=== PATIENT | female | born 1955 | race American Indian/Alaskan Native ===

== ENCOUNTER 2017-06-11 05:55 | Inpatient (IN) | payer OTHER ==
--- NOTE | 2017-06-10 10:23 | HP ---
Satellite [facility] - Chief Complaint Chief Complaint: right knee pain - Past Medical History Allergies/Adverse Reactions: Allergies Allergy/AdvReac Type Severity Reaction Status Date / Time No Known Allergies Allergy Verified 03/14/17 11:41 Renal/: Yes: UTI, Other (nephrolithiasis and septiciemia requiring admission) - Current Medications Current Medications: Home Medications Medication Instructions Recorded Amlodipine Besylate 5 mg PO HS 03/14/17 Atorvastatin Ca [Lipitor] 10 mg PO HS 03/14/17 Naproxen Sodium [Aleve] 220 mg PO BID PRN 03/14/17 Satellite Physical Exam - Physical Examination General Appearance: Well Nourished, Well Developed, Alert & Oriented x3 ENT: Clear Lung: Normal air movement Heart: Regular rate & rhythm Extremities: Other (right knee- + swelling, + ttp, decr rom, nvi xrays show severe tricompartmental djd) Neurological: Intact, Alert, Oriented Satellite Impression/Plan - Impression/Plan Impression: right knee djd Operative Procedure: right reginaldo tkr Date to be Performed: 06/11/17
[2017-06-11] MEDS ORDERED: CEFAZOLIN 1 GM/D5W 50 ML IVPB ONE (06:06)
[2017-06-11] MEDS ORDERED: CELECOXIB 200 MG CAPSULE PO ONE (06:06)
[2017-06-11] MEDS ORDERED: GABAPENTIN 300 MG CAPSULE (FP) PO ONE (06:06)
[2017-06-11] MEDS ORDERED: TRANEXAMIC ACID 1000 MG/10 ML VIAL IVPUSH ONE (06:06)
[2017-06-11] MEDS ORDERED: oxyCODONE HCL 10 MG SUSTAINED ACTING TABLET PO ONE (06:06)
[2017-06-11] MEDS ORDERED: oxyCODONE HCL 10 MG SUSTAINED ACTING TABLET ONE (06:09)
[2017-06-11] MEDS ORDERED: GABAPENTIN 300 MG CAPSULE (FP) ONE (06:09)
[2017-06-11] MEDS ORDERED: CELECOXIB 200 MG CAPSULE ONE (06:09)
[2017-06-11] MEDS ORDERED: MIDAZOLAM HCL 2 MG/2 ML SINGLE DOSE VIAL ONE ×2 (06:37→08:16)
[2017-06-11] MEDS ORDERED: SODIUM CHLORIDE 0.9% P/F 10 ML VIAL IJ ONE (06:37)
[2017-06-11] MEDS ORDERED: DEXAMETHASONE SOD PHOSPHATE/PF 10 MG/ML SDV ONE (06:37)
[2017-06-11] MEDS ORDERED: BUPIVACAINE HCL/PF (5 MG/ML) 30 ML VIAL IJ ONE (06:37)
[2017-06-11 06:49] VITALS: BMI 37.8
[2017-06-11] MEDS ORDERED: ceFAZolin SODIUM 1 GM VIAL ONE (07:18)
[2017-06-11] MEDS ORDERED: VANCOMYCIN 1,000 MG VIAL (RESTRICTED TO ID ONLY) ONE (07:18)
[2017-06-11] MEDS ORDERED: ePHEDrine SULFATE 50 MG/1 ML AMPULE ONE (07:47)
[2017-06-11] MEDS ORDERED: SUCCINYLCHOLINE CHLORIDE 200 MG/10 ML VIAL ONE (07:47)
[2017-06-11] MEDS ORDERED: TRANEXAMIC ACID 1000 MG/10 ML VIAL ONE ×2 (07:51→09:26)
[2017-06-11] MEDS ORDERED: PROPOFOL 20 ML ONE (08:27)
[2017-06-11] MEDS ORDERED: ROCURONIUM BROMIDE 50 MG/5 ML VIAL ONE (08:37)
[2017-06-11] MEDS ORDERED: ONDANSETRON 4 MG/2 ML VIAL ONE (09:20)
[2017-06-11] MEDS ORDERED: DEXAMETHASONE SOD PHOSPHATE 4 MG/1 ML VIAL ONE (09:21)
[2017-06-11] MEDS ORDERED: MAG HYDROX/AL HYDROX/SIMETH 30 ML UNIT-DOSE CUP PO PRN (10:27)
[2017-06-11] MEDS ORDERED: MAGNESIUM HYDROX 2400MG/30ML ORAL SUSPENSION 30 ML CUP PO PRN (10:27)
[2017-06-11] MEDS ORDERED: ONDANSETRON 4 MG/2 ML VIAL IVPB PRN (10:27)
[2017-06-11] MEDS ORDERED: LACTATED RINGERS SOLUTION 1,000 ML IV SCH (10:30)
--- NOTE | 2017-06-11 10:30 | OP ---
Operative Note - Note: Operative Date: 06/11/17 (jennifer) Pre-Operative Diagnosis: right knee djd Operation: right reginaldo tkr Post-Operative Diagnosis: Same as Pre-op Surgeon: Yrn Santa [employer] Professional: Baldemar Singleton Anesthesiologist/HOG SCRAPER: Amy Gonzalez Anesthesia: General, Local Specimens Removed: bone fragments Estimated Blood Loss (mls): 100 (tourniquet) Operative Report Dictated: Yes
[2017-06-11] MEDS ORDERED: oxyCODONE HCL 5 MG TABLET PO PRN (11:47)
[2017-06-11] MEDS: ACETAMINOPHEN 325 MG TABLET (FP) PO SCH ×3 (12:00→18:01)
[2017-06-11] MEDS: CEFAZOLIN 2 GM/D5W 50 ML IVPB SCH (15:44)
[2017-06-11] MEDS: oxyCODONE HCL 5 MG TABLET PO PRN (16:35)
--- NOTE | 2017-06-11 17:08 | SPEC ---
DATE OF OPERATION: 06/11/2017 OPERATION: Right total knee replacement with robotic-assisted navigation (MAKOplasty). PREOPERATIVE DIAGNOSIS: Degenerative joint disease, right knee. POSTOPERATIVE DIAGNOSIS: Degenerative joint disease, right knee. SURGEON: Yrn Santa M.D. [facility] NURSE: Pari Lewis ANESTHESIA: Regional and spinal. CLOSURE: A Triathlon cemented knee system with a 2 femur, a 2 tibia, a 9 polyethylene, a 29 patella. A number 1 Vicryl fascia, 0 and 2-0 for subcutaneous, 3-0 Monocryl subcuticular with skin glue for skin, 4-0 undyed Vicryl for pin sites. ESTIMATED BLOOD LOSS: Negligible. TOURNIQUET TIME: Approximately 80 minutes. COMPLICATIONS: None. CONDITION: To recovery room in stable condition. DESCRIPTION OF PROCEDURE: Patient was taken to the operating room on June 11, 2017. Regional and spinal anesthesia were administered by the anesthesiologist. IV antibiotics and TXA were administered prophylactically prior to the case. A well-padded pneumatic tourniquet was placed on the right proximal thigh. The right lower extremity was prepped and draped in the usual sterile fashion. An approximately 12-cm midline incision centered over the patella was incised. Hemostasis was achieved with Bovie cautery. Sharp dissection was carried down to the level of the extensor mechanism the procedure. A medial parapatellar arthrotomy was then performed. The patella was inverted and the knee was flexed up to 90 degrees. Subperiosteal dissection was performed on the anteromedial proximal tibia until the knee was able to be brought forward. This was facilitated by taking the ACL, the PCL, and the medial and lateral menisci. A checkpoint was malleted into the medial femoral condyle and into the anteromedial proximal tibia. Through 2 small stab incisions in the mid femur and two in the mid tibia, 2 bicortical pins were drilled, achieving excellent height. Two of these pins were attached to the navigation arrays. The knee was then registered with the navigation device by rotating the hip to ascertain the center of rotation of the hip with points on both the medial and lateral malleoli and multiple points on both the femur and on the tibia. Excellent registration was confirmed by "popping the bubbles". At this time, the osteophytes on the edges of the proximal tibia both medially and laterally, as well as on the medial lateral femoral condyles underneath the collateral ligaments were debrided. The knee was stressed in extension and in flexion to confirm good gaps. The virtual positions of the components were then optimized in order to have a balanced knee, both in extension and in 90 degrees of flexion. The sizes of the components were also optimized to get good coverage over both the tibia and the femur and to produce equal gaps in extension and flexion with the appropriate amount of external rotation of the femur, the appropriate amount of flexion of the femoral component and the appropriate slope on the tibial component. At this time, the robot was brought into the field and registered. The robot was used to cut the proximal tibia and to make all the cuts on the distal femur. The bone was then removed. A spacer block in extension and flexion was used to confirm equal balancing of the component in both extension and 90 degrees of flexion. The box for the posterior cruciate sacrificing component was then performed and a trial component on the femur and tibia was applied. The femoral component was clipped into place with the appropriate external rotation. This was confirmed by the navigation device, ensuring the appropriate position of the tibial component on the proximal tibia. The patella was calipered for thickness and osteotomized at the appropriate level. A lollipop was used to drill the three lugholes in the patella and then a trial component was applied. The knee was taken through a range of motion and found to have excellent tracking of the patella from full extension to full flexion, with good stability, varus/valgus throughout range of motion. The trial components were then removed. Before removing the tibial tray, the keyhole was made. The knee was then thoroughly irrigated with antibiotic irrigation. The real components were then cemented in, using modern generation cement techniques with antibiotic cement and pressurization. After the cement was hardened, the knee was thoroughly inspected to remove all excess cement. The real polyethylene component was then clipped into place. Again, range of motion, stability and tracking were found to be excellent throughout. The knee was then pulse antibiotic irrigated and dried. Vancomycin powder was placed into the knee. The checkpoints were removed. The medial parapatellar arthrotomy was then closed using number 1 Vicryl interrupted suture. The knee was again taken through range of motion and found to have no undue tension on the repair and good tracking throughout. The subcutaneous was closed with 0 and 2-0 Vicryl and 3-0 Monocryl subcuticular for skin with skin glue. The pins were removed in the femur and the tibia and pulse antibiotic irrigated and closed with 4-0 undyed Vicryl. Sterile Aquacel dressing followed by a Anderson dressing was applied. The tourniquet was then deflated. One more dose of TXA was administered at the end of the case. The patient was awakened from anesthesia and transferred to the recovery room in stable condition. X-rays revealed good position of the components. There were no complications. Estimated blood loss was negligible. Total tourniquet time was approximately 80 minutes. Gordo HIGHTOWER/[id number]
[2017-06-11] MEDS: SENNOSIDES/DOCUSATE COMBO (SENNA PLUS) TABLET (UD) PO SCH (21:34)
[2017-06-11] MEDS: ATORVASTATIN CA 10 MG TABLET (FP) PO SCH (21:34)
[2017-06-11] MEDS: amLODIPine BESYLATE 5 MG TABLET (FP) PO SCH (21:34)
[2017-06-12] MEDS: CEFAZOLIN 2 GM/D5W 50 ML IVPB SCH (00:27)
[2017-06-12] MEDS: ACETAMINOPHEN 325 MG TABLET (FP) PO SCH ×4 (00:29→17:15)
[2017-06-12 08:06] LABS: MCH 27.5 pg (25.7-33.7); MCHC 33.4 g/dl (32.0-36.0); MEAN CELL VOLUME 82.4 fl (80-96); MEAN PLT VOLUME 9.4 fl (7.5-11.1); PLATELET COUNT 233 K/MM3 (134-434); RDW 13.3 % (11.6-15.6); WHITE BLOOD COUNT 14.4 K/mm3 (4.0-10.8)
--- NOTE | 2017-06-12 08:18 | PN ---
Progress Note (short form) - Note Progress Note: Ortho Pt seen and examined s/p right reginaldo tkr pod #1 Selected Entries 06/12/17 06:00 Temperature 98.1 F Pulse Rate 85 Respiratory 20 Rate Blood Pressure 119/48 Laboratory Tests 06/12/17 07:00 WBC 14.4 H Hgb 12.7 Hct 38.1 Plt Count 233 dressing c/d/i, calf soft, nt rom 0-50, nvi a/p PT dvt ppx pain control d/c home tomorrow if stable
[2017-06-12] MEDS: oxyCODONE HCL 5 MG TABLET PO PRN ×3 (08:33→21:32)
[2017-06-12] MEDS: ASPIRIN 325 MG TABLET PO SCH (08:33)
--- NOTE | 2017-06-12 09:31 | PN ---
Progress Note (short form) - Note Progress Note: Anesthesiology Post-op/Pain Service POD#1 s/p Right TKR under regional/neuraxial anesthesia. Pt. feels well. She has some pain with movement but states that meds help. She is participating in PT. No residual paresthesia. VSS.
[2017-06-12] MEDS: MULTIVITAMINS (DAILY MVI) TABLET (FP) PO SCH (09:53)
[2017-06-12] MEDS: PANTOPRAZOLE 40 MG TABLET (FP) PO SCH (09:53)
[2017-06-12] MEDS: SENNOSIDES/DOCUSATE COMBO (SENNA PLUS) TABLET (UD) PO SCH ×2 (09:53→21:31)
[2017-06-12] MEDS: amLODIPine BESYLATE 5 MG TABLET (FP) PO SCH (21:31)
[2017-06-12] MEDS: ATORVASTATIN CA 10 MG TABLET (FP) PO SCH (21:31)
[2017-06-13] MEDS: ACETAMINOPHEN 325 MG TABLET (FP) PO SCH ×3 (00:04→12:26)
[2017-06-13] MEDS: oxyCODONE HCL 5 MG TABLET PO PRN (06:10)
[2017-06-13 06:15] VITALS: BP 128/49; PULSE 80; TEMP 97.7
--- NOTE | 2017-06-13 08:09 | PN ---
Progress Note (short form) - Note Progress Note: Ortho Pt seen and examined s/p right reginaldo tkr pod #2 Selected Entries 06/13/17 06:00 Temperature 97.7 F Pulse Rate 80 Respiratory 18 Rate Blood Pressure 128/49 Laboratory Tests 06/12/17 07:00 WBC 14.4 H Hgb 12.7 Hct 38.1 Plt Count 233 dressing c/d/i, calf soft, nt rom 0-50, nvi a/p PT dvt ppx pain control d/c home today f/u in 1 week
--- NOTE | 2017-06-13 08:10 | DS ---
Physical Examination Vital Signs: Vital Signs Temperature 97.7 F 06/13/17 06:00 Pulse Rate 80 06/13/17 06:00 Respiratory Rate 18 06/13/17 06:00 Blood Pressure 128/49 06/13/17 06:00 O2 Sat by Pulse Oximetry (%) 95 06/13/17 06:00 Discharge Summary Reason For Visit: OSTEOARTHRITIS Procedures: Principal: s/p right reginaldo tkr Hospital Course: admitted for elective right reginaldo tkr, uneventful post-op, stable for d/c Condition: Good - Instructions Diet, Activity, Other Instructions: Post-op Instructions-Total Knee Replacement Call the office for a follow-up appointment in 1 week - [phone] Aspirin 325mg daily for 6 weeks. Pain medication was sent into your pharmacy. Apply Graduated Compression Stockings (TEDs) to both lower extremities- remove daily for hygiene ONLY Apply Sequential Compression Device (SCDs) to both Lower extremities remove for PT and hygiene ONLY Apply cold packs to affected area for 15 minutes every 2 hours. Physical Therapist will come to your home for the first 5 days. You will be set up with outpatient PT at your first post-operative visit. Patient may ambulate as tolerated-encourage self care (at least every 2-3 hours while awake) with walker or cane Maintain Aquacel (waterproof) dressing to operative wound (will be removed by surgeon at first office visit) Shower with Aquacel dressing in place-if Aquacel integrity compromised, remove and apply dry sterile dressing and notify Orthopedist. DO NOT SHOWER unless Orthopedists approves without Aquacel dressing CONTACT THE OFFICE FOR ANY CHANGE IN YOUR CONDITION (for example-fever greater than 102 degrees,excessive bleeding from operative site, purulent drainage, severe swelling or pain) GO TO THE EMERGENCY ROOM IF THERE IS A MEDICAL EMERGENCY Knee Precautions: * Keep a rolled towel under affected heel while in bed or chair (to keep knee in extension) * Keep affected leg elevated except during mealtimes * DO NOT PLACE PILLOW UNDER AFFECTED KNEE * If you have any questions, please do not hesitate to call the office - . Referrals: Yrn Santa MD [Staff Physician] - Disposition: VNS/HOME HEALTH CARE - Home Medications Comprehensive Discharge Medication List: Ambulatory Orders Amlodipine Besylate 5 mg PO HS 03/14/17 Atorvastatin Ca [Lipitor] 10 mg PO HS 03/14/17 Naproxen Sodium [Aleve] 220 mg PO BID PRN 03/14/17 Aspirin [ASA -] 325 mg PO DAILY@0800 tablet 06/11/17 Oxycodone HCl/Acetaminophen [Percocet 5-325 mg Tablet -] 1 - 2 tab PO Q6H #50 tab MDD 8 06/11/17
[2017-06-13 08:41] LABS: MCH 27.9 pg (25.7-33.7); MCHC 33.8 g/dl (32.0-36.0); MEAN CELL VOLUME 82.5 fl (80-96); MEAN PLT VOLUME 9.4 fl (7.5-11.1); PLATELET COUNT 212 K/MM3 (134-434); RDW 13.6 % (11.6-15.6); WHITE BLOOD COUNT 9.4 K/mm3 (4.0-10.8)
[2017-06-13] MEDS: SENNOSIDES/DOCUSATE COMBO (SENNA PLUS) TABLET (UD) PO SCH (09:50)
[2017-06-13] MEDS: ASPIRIN 325 MG TABLET PO SCH (09:50)
[2017-06-13] MEDS: PANTOPRAZOLE 40 MG TABLET (FP) PO SCH (09:51)
[2017-06-13] MEDS: MULTIVITAMINS (DAILY MVI) TABLET (FP) PO SCH (09:51)
--- NOTE | 2017-06-13 16:02 | PATH ---
Surgical Pathology Report Patient Name: DILAN RIVAS Med. Rec. #: [id number] /Age/Gender: 1955 (Age: 62) / F Account: [id number] Location: [facility] MED-SURG Taken: 06/11/2017 Received: 06/11/2017 Reported: 06/13/2017 Physicians: Yrn Santa M.D. Specimen(s) Received BONE RIGHT KNEE Clinical History Right knee osteoarthritis Final Diagnosis BONE, RIGHT KNEE, TOTAL KNEE REPLACEMENT: DEGENERATIVE JOINT DISEASE. Electronically Signed Briana Tejeda M.D. Gross Description Received in formalin labeled "bone right knee," is an 11.5 x 7.5 x 1.5 cm aggregate of multiple irregular portions of bone. The tibial plateau measures 6.4 x 4.7 x 1.4 cm. There is a 2.3 cm greatest dimension area of eburnation present. The remaining articular surfaces are childs-yellow and diffusely granular. The underlying trabecular bone is yellow and hard. Weir Fisher sections are submitted in one cassette, following decalcification. [facility]
== END 2017-06-13 14:00 | disposition home health service (06) | DRG 470 ==
LOC: FM/S 05:55
PROVIDERS: ADMIT Orthopaedic Surgery; ATTEND Orthopaedic Surgery
PROC: 8E0Y0CZ Robotic Assisted Procedure of Lower Extremity, Open Approach (ICD-10-PCS; 2017-06-11)
PROC: 0SRC0J9 Replacement of Right Knee Joint with Synthetic Substitute, Cemented, Open Approach (ICD-10-PCS; principal; 2017-06-11 08:57)
DX: M17.11 Unilateral primary osteoarthritis, right knee (principal); I10 Essential (primary) hypertension; E66.9 Obesity, unspecified; Z68.37 Body mass index [BMI] 37.0-37.9, adult; Z87.440 Personal history of urinary (tract) infections
CPT/HCPCS: 36415; 73560-TC-RT; 85027; 88304-TC; 88311-TC; 94010; 94760; 97010-GP; 97116-GP; 97161-GP

== ENCOUNTER 2018-03-16 22:04 | Emergency (ER) | payer OTHER ==
[2018-03-16 22:13] VITALS: BP 133/71; PULSE 82; TEMP 98.1; BMI 37.8
[2018-03-16] MEDS ORDERED: FLUORESCEIN NA 1 EA STRIP ONE (22:20)
[2018-03-16] MEDS ORDERED: TETRACAINE 0.5% OPHTH SOLN 2 ML BOTTLE ONE (22:20)
--- NOTE | 2018-03-16 22:24 | PDOC ---
History of Present Illness - General Chief Complaint: Eye Problem Stated Complaint: ALLERGY TO DUST Time Seen by Provider: 03/16/18 22:13 History Source: Patient Exam Limitations: No Limitations - History of Present Illness Initial Comments: 03/16/18 22:34 This is a 63-year-old female who comes in complaining of ALLERGY and itching to her eyes bilaterally. Patient rubber her one eye so much that it is now swollen and all read. Patient denies any pain or purulent discharge from her eyes. Patient is taking some [id number] NSAID drops for the eye but otherwise no other medication. PAST MEDICAL HISTORY: no significant history PAST SURGICAL HISTORY: no significant history FAMILY HISTORY: no pertinant history SOCIAL HISTORY: Pt lives with family and is employed. MEDICATIONS: reviewed ALLERGIES: As per nursing notes Review of Systems General: No fevers or chills, no weakness, no weight loss HEENT: No change in vision. No sore throat,. No ear pain, water itching eyes bilateral right greater than left CardioVascular: No chest pain or shortness of breath Respiratory:No cough, or wheezing. Gastrointestinal: no nausea, vomitting, diarrhea or constipation, No rectal bleeding Genitourinary: No dysuria, hematuria, or frequency Musculoskeletal: No joint or muscle pain or swelling Neurologic: No headache, vertigo, dizziness or loss of consciousness Psychiatric: nor depression Skin: No rashes or easy bruising Endocrine: no increased thirst or abnormal weight change Allergic: no skin or latex allergy All other systems reviewed and normal GENERAL: The patient is awake, alert, and fully oriented, in no acute distress. HEAD: Normal with no signs of trauma. EYES: Pupils equal, round and reactive to light, extraocular movements intact, sclera anicteric, right eye conjunctiva is moderately injected there is no purulent discharge there is a clear watery discharge from the eyes bilateral left eye conjunctiva is slightly injected but less than right. On floor sitting staining there is no increased uptake/abrasions EXTREMITIES: Normal range of motion, no edema. NEUROLOGICAL: Normal speech, normal gait. grossly intact PSYCH: Normal mood, normal affect. SKIN: Warm, Dry, normal turgor, no rashes or lesions noted. Assessment and plan: This is a 63-year-old female with ALLERGIC conjunctivitis. Patient had prescriptions in to her pharmacy for drops and was discharged home with her son patient will get the prescription filled and take the drops 03/16/18 22:36 Past History - Past Medical History Allergies/Adverse Reactions: Allergies Allergy/AdvReac Type Severity Reaction Status Date / Time No Known Allergies Allergy Verified 03/16/18 22:06 Home Medications: Ambulatory Orders Amlodipine Besylate 5 mg PO HS 03/14/17 Atorvastatin Ca [Lipitor] 10 mg PO HS 03/14/17 Olopatadine HCl 0.1% Ophth Samantha [Patanol (Nf)] 1 drop OU BID #5 ml 03/16/18 Anemia: Yes (VERY LONG TIME AGO) Asthma: No Cancer: No Cardiac Disorders: No CVA: No COPD: No CHF: No Dementia: No Diabetes: No GI Disorders: No Disorders: (HX KIDNEY STONES, LITHOTRIPSY 2014) HTN: Yes Hypercholesterolemia: Yes Liver Disease: No Seizures: No Thyroid Disease: No - Surgical History Abdominal Surgery: No Appendectomy: No Cardiac Surgery: No Cholecystectomy: No Lung Surgery: No Neurologic Surgery: No Orthopedic Surgery: No - Immunization History Immunization Up to Date: No - Suicide/Smoking/Psychosocial Hx Smoking History: Never smoked Have you smoked in the past 12 months: No Information on smoking cessation initiated: No Hx Alcohol Use: No Drug/Substance Use Hx: No Substance Use Type: None Hx Substance Use Treatment: No *Physical Exam - Vital Signs Last Vital Signs Temp Pulse Resp BP Pulse Ox 98.1 F 82 16 133/71 99 03/16/18 22:09 03/16/18 22:09 03/16/18 22:09 03/16/18 22:09 03/16/18 22:09 *DC/Admit/Observation/Transfer Diagnosis at time of Disposition: Allergic conjunctivitis - Discharge Dispostion Disposition: HOME Condition at time of disposition: Stable Decision to Admit order: No - Prescriptions Prescriptions: Olopatadine HCl 0.1% Ophth Samantha [Patanol (Nf)] 1 drop OU BID #5 ml - Referrals Referrals: Clark Lombardi MD [Primary Care Provider] - - Patient Instructions Additional Instructions: Put 1 drop of ophthalmic ointment the ophthalmic solution in each eye twice a day for itching and redness. Follow-up with your typewriter tester if not improved in 2-3 days. Return to the emergency department immediately with ANY new, persistent or worsening symptoms. Continue any medications as previously prescribed by your physician. . Please make sure your doctor reviews the results of your emergency evaluation. Thank you for coming to the Emergency Department today for your care. It was a pleasure to see you today. Please note that your evaluation is INCOMPLETE until you follow-up with your doctor. - Post Discharge Activity
== END 2018-03-16 22:47 | disposition home or self-care (01) ==
LOC: FER 22:04
DX: H10.10 Acute atopic conjunctivitis, unspecified eye (principal); I10 Essential (primary) hypertension; E78.00 Pure hypercholesterolemia, unspecified
CPT/HCPCS: 99281-25

== ENCOUNTER 2020-04-11 06:02 | Inpatient (IN) | payer OTHER ==
--- NOTE | 2019-11-23 09:35 | HP ---
History & Physical Update - History History: No Change - Physical Physical: No Change - Assessment Assessment: No Change - Plan Plan: No Change (No canela in HP)
--- NOTE | 2019-11-23 09:40 | OP ---
Operative Note - Note: Operative Date: 11/23/19 Post-Operative Diagnosis: Same as Pre-op Anesthesia: General Operative Report Dictated: Yes
[2020-04-08 15:32] VITALS: BMI 38.0
--- NOTE | 2020-04-11 04:01 | HP ---
Satellite [facility] - Chief Complaint Chief Complaint: Pelvic Prolapse History of Present Illness: 65 yo with pelvic prolapse for hysterectomy. Hx of right knee replacement History Source: Patient Limitations to Obtaining History: No Limitations - Past Medical History Allergies/Adverse Reactions: Allergies Allergy/AdvReac Type Severity Reaction Status Date / Time No Known Allergies Allergy Verified 04/11/20 07:00 Cardiovascular: Yes: HTN, Hyperlipdemia, Other (diabetes) Renal/: Yes: UTI, Other (nephrolithiasis and septiciemia requiring admission) ...: No Additional Medical History: HTN. DIabetes. Hyperlipdemia - Current Medications Current Medications: Home Medications Medication Instructions Recorded Atorvastatin Ca [Lipitor] 20 mg PO HS 03/14/17 Amlodipine Besylate/Valsartan 1 each PO HS 04/08/20 [Amlodipine-Valsartan 5-160 mg] Aspirin [Ecotrin] 81 mg PO DAILY 04/08/20 Metformin HCl [Glucophage] 1,000 mg PO DAILY 04/08/20 Satellite Physical Exam - Physical Examination General Appearance: Well Nourished, Well Developed, Alert & Oriented x3, Obese Lung: Clear to auscultation Breasts: Soft, Non-Tender Abdomen: Soft Extremities: No edema Pelvic Exam: Within normal limits External Genitalia, Within normal limits Vagina, Within normal limits Cervix, Other Uterus (enlarged 8 cm) Neurological: Intact, Alert, Oriented Satellite Impression/Plan - Impression/Plan Impression: Pelvic prolpase. diabetes. Hypertension. hyperlipemia Operative Procedure: Robotic laparoscopic hysterectomy. bilateral salpingectomy Date to be Performed: 04/11/20
[~2020-04-11 06:02] MED LIST: ACETAMINOPHEN 325 MG TABLET (FP) PO PRN; CEFAZOLIN 2 GM in DEXTROSE 5%-WATER - 100 ML IVPB ONE; IBUPROFEN 400 MG TABLET (FP) PO PRN; PHENAZOPYRIDINE HCL 100 MG TABLET (FP) PO ONE; oxyCODONE HCL 5 MG TABLET PO PRN
[2020-04-11] MEDS ORDERED: BUPIVACAINE LIPOSOME/PF (EXPAREL) 266 MG/20 ML VIAL ONE (07:18)
[2020-04-11] MEDS ORDERED: BUPIVACAINE HCL/PF 0.25% (2.5MG/ML) 10 ML VIAL ONE (07:18)
[2020-04-11] MEDS ORDERED: SUCCINYLCHOLINE CHLORIDE 200 MG/10 ML SYRINGE ONE (07:28)
[2020-04-11] MEDS ORDERED: PROPOFOL 20 ML ONE ×2 (07:28)
[2020-04-11] MEDS ORDERED: MIDAZOLAM HCL 2 MG/2 ML SINGLE DOSE VIAL ONE (07:28)
[2020-04-11] MEDS ORDERED: fentaNYL CITRATE 250 MCG/5 ML VIAL ONE (07:28)
[2020-04-11] MEDS ORDERED: ROCURONIUM BROMIDE 50 MG/5 ML SYRINGE ONE ×2 (07:28→09:00)
[2020-04-11] MEDS ORDERED: ceFAZolin SODIUM 1 GM VIAL IVPB ONE (08:40)
[2020-04-11] MEDS ORDERED: LACTATED RINGERS SOLUTION 1,000 ML IV SCH ×2 (09:15→13:15)
[2020-04-11] MEDS ORDERED: IBUPROFEN 800 MG/8 ML IJ IVPB PRN (11:58)
[2020-04-11] MEDS ORDERED: oxyCODONE HCL 5 MG TABLET PO PRN ×2 (11:58)
[2020-04-11] MEDS ORDERED: SIMETHICONE 80 MG TAB.CHEW (FP) PO PRN (11:58)
[2020-04-11] MEDS ORDERED: ONDANSETRON 4 MG/2 ML VIAL IVPUSH PRN (11:58)
[2020-04-11] MEDS ORDERED: DOCUSATE SODIUM 100 MG CAPSULE (FP) PO PRN (11:58)
[2020-04-11] MEDS ORDERED: BISACODYL 5 MG TABLET.DR (FP) PO PRN (11:58)
--- NOTE | 2020-04-11 12:09 | OP ---
Operative Note - Note: Operative Date: 04/11/20 Pre-Operative Diagnosis: Endometrial hyperplasia Operation: Robotic total hysterectomy and bilateral salpingectomy with lysis of adhesions Post-Operative Diagnosis: Same as Pre-op Surgeon: Esperanza Hudson Rehabilitation Assistant: Wesley Tabares Anesthesiologist/CNC MACHINE PROGRAMMER: Katherine Ledbetter MD Anesthesia: General Estimated Blood Loss (mls): 50 Fluid Volume Replaced (mls): 1,000 Operative Report Dictated: Yes
--- NOTE | 2020-04-11 12:11 | SURG ---
Surgery Coding Analyst Note Coding Analyst: Wesley Tabares PA-C Date of Service: 04/11/20 Diagnosis: endometrial hyperplasia Procedure: Robotic total hysterectomy, bilateral salpingectomy, and Lysis of adhesions I was present for the entirety of the operative procedure. For further detail, please refer to operative report.
[2020-04-11] MEDS ORDERED: NEOSTIGMINE METHYLSULFATE 0.5 MG/1 ML - 10 ML MDV ONE (12:31)
[2020-04-11] MEDS ORDERED: GLYCOPYRROLATE 0.2 MG/1 ML VIAL ONE (12:32)
[2020-04-11] MEDS ORDERED: IBUPROFEN 800 MG/8 ML IJ IVPB ONE ×2 (13:16→13:25)
[2020-04-11] MEDS: CEFAZOLIN 1 GM/D5W 1 GM/50 ML BAG IVPB SCH (17:52)
[2020-04-11 21:14] LABS: HEMATOCRIT 35.9 % (32.4-45.2); HEMOGLOBIN 11.4 GM/dL (10.7-15.3); MCH 26.5 pg (25.7-33.7); MCHC 31.9 g/dl (32.0-36.0); MEAN CELL VOLUME 82.9 fl (80-96); MEAN PLT VOLUME 8.7 fl (7.5-11.1); PLATELET COUNT 224 K/MM3 (134-434); RBC 4.32 M/mm3 (3.60-5.2); RDW 14.7 % (11.6-15.6); WHITE BLOOD COUNT 10.9 K/mm3 (4.0-10.0)
[2020-04-11 21:48] LABS: BLOOD UREA NITROGEN 11.9 mg/dL (7-18); CALCIUM 8.1 mg/dL (8.5-10.1); CREATININE 0.7 mg/dL (0.55-1.3); POTASSIUM 4.1 mmol/L (3.5-5.1)
[2020-04-11] MEDS ORDERED: PATIENT'S OWN MEDICATION (NON-FORMULARY) (Amlodipine Besylate/Valsartan [Amlodipine-Valsar PO SCH (22:00)
[2020-04-11] MEDS: ATORVASTATIN CA 20 MG TABLET (FP) PO SCH (23:00)
[2020-04-11] MEDS: amLODIPine BESYLATE 5 MG TABLET (FP) PO SCH (23:00)
[2020-04-11] MEDS: BENZOCAINE/MENTH/CETYLPYRD CL 1 EACH LOZENGE MM PRN (23:00)
[2020-04-11] MEDS: VALSARTAN 160 MG TABLET (UD) PO SCH (23:00)
[2020-04-12] MEDS: CEFAZOLIN 1 GM/D5W 1 GM/50 ML BAG IVPB SCH ×2 (01:56→09:43)
[2020-04-12] MEDS: BENZOCAINE/MENTH/CETYLPYRD CL 1 EACH LOZENGE MM PRN ×3 (06:15→16:10)
[2020-04-12] MEDS: metFORMIN HCL 500 MG TABLET (FP) PO SCH (06:18)
--- NOTE | 2020-04-12 08:15 | OP ---
DATE OF OPERATION: 04/11/2020 PREOPERATIVE DIAGNOSES: Pelvic prolapse as well as leiomyomatous uterus. OPERATION: Laparoscopic robotic total hysterectomy and bilateral salpingectomy as well as enterolysis. SURGEON: Esperanza Hudson MD ASSISTANTS: ; JOCELYN Florez- ANESTHESIA: General. ESTIMATED BLOOD LOSS: 50 mL. PROCEDURE: Patient was taken to the operating room, placed in the dorsal lithotomy position, prepped and draped in the usual sterile fashion. Timeout was performed in accordance with hospital regulation. Speculum was placed in the vagina. Anterior lip of the cervix grasped with single-tooth tenaculum. The cervix was then dilated to accommodate the uterine manipulator. Rashid catheter was then inserted into the bladder. Speculum was intact and was removed after manipulator was secured in place. Attention was then drawn to the umbilicus where an 8-mm umbilical incision was made. Veress needle was inserted into the cavity. Approximately 3-4 L of CO2 was infiltrated in the cavity. Trocar was inserted and laparoscope and camera attached. Two trocars were placed on the left, 1 parallel to the umbilical incision about 10 cm apart and 1 in the upper abdomen on the left; 8-mm incisions were made and 5-mm incisions were made and trocars were inserted under direct visualization. Same procedure was repeated on the right side. Two trocars were placed parallel to the umbilical; 8-mm incisions were made with the scalpel and trocars were inserted under direct visualization. Visualization revealed severe pelvic and abdominal bowel disease. Omentum was seen to be attached in various locations. Trocars were then inserted. The vessel sleeve was inserted on the left and tenaculum and Endoshears inserted on the right. The positions were then confirmed and all incisions were burped up as well as da Tabby robot had been side docked to the patient's side arm and trocars were then inserted on to da Tabby robot and then instruments were then placed. Once instruments were secured in location attention was then drawn to the console where control of the console was done. A number of enterolyses was done and round ligament was identified as well as uterine ovarian ligaments identified. Coagulation and cutting of the ligaments were done. Uterine artery was identified all along the left side down to the level of the cervix. The sacrouterine reflexion was then entered and bladder was bluntly dissected out of the operative field. Same procedure was repeated on the right side. Uterine ovarian ligament was identified. Uterine artery was identified and clamped and cut down to the level of the cervix. Endoshears was then used to enter the vagina. Circumferentially the vagina was removed from the cervix. The uterus and cervix were then removed vaginally and 2-0 V-Loc suture was then introduced into the abdomen. The vagina was then closed in a continuous stitch. Hemostasis was achieved. Needle was then removed. Tubes were bilaterally grasped and coagulated and cut and removed from patient's abdomen. Hemostasis was achieved and estimated blood loss was 50 mL. All instruments were then removed. Patient had tolerated procedure well. Incisions were then closed using 3-0 Vicryl in a subcuticular fashion. Wounds washed and dressed. Estimated blood loss 50 mL. Approximately 200 mL of urine was seen coming out of the Rashid and the ureters were identified bilaterally. Gordo [id number]
[2020-04-12 09:07] LABS: HEMATOCRIT 35.6 % (32.4-45.2); HEMOGLOBIN 11.5 GM/dL (10.7-15.3); MCH 26.9 pg (25.7-33.7); MCHC 32.3 g/dl (32.0-36.0); MEAN CELL VOLUME 83.2 fl (80-96); MEAN PLT VOLUME 8.7 fl (7.5-11.1); PLATELET COUNT 233 K/MM3 (134-434); RBC 4.28 M/mm3 (3.60-5.2); WHITE BLOOD COUNT 8.7 K/mm3 (4.0-10.0)
[2020-04-12 09:33] LABS: BLOOD UREA NITROGEN 7.9 mg/dL (7-18); CALCIUM 8.3 mg/dL (8.5-10.1); CREATININE 0.7 mg/dL (0.55-1.3); POTASSIUM 3.8 mmol/L (3.5-5.1)
--- NOTE | 2020-04-12 09:37 | CONSULT ---
Consult Consult Specialty:: intrenal med Referred by:: Dr Hudson Reason for Consultation:: S/P Laproscopic hystrectomy and bilateral salpingectomy - History of Present Illness Chief Complaint: Sore throat History of Present Illness: Known to me for many years,diagnosed to have bronchial asthma and diabetes Hysterectomy done for prolapse uterus - Past Medical History Cardio/Vascular: Yes: HTN, Hyperlipdemia, Other (diabetes) Pulmonary: Yes: Asthma Renal/: Yes: UTI, Other (nephrolithiasis and septiciemia requiring admission) ...: No ENT: Yes: Other (throat clear) Endocrine: Yes: Diabetes Mellitus Additional Medical History: HTN. DIabetes. Hyperlipdemia - Past Surgical History Past Surgical History: Yes: None - Alcohol/Substance Use Hx Alcohol Use: No - Smoking History Smoking history: Never smoked Have you smoked in the past 12 months: No - Social History Usual Living Arrangement: Other (spouse recently ) ADL: Independent Home Medications - Allergies Allergies/Adverse Reactions: Allergies Allergy/AdvReac Type Severity Reaction Status Date / Time No Known Allergies Allergy Verified 04/11/20 07:00 - Home Medications Home Medications: Ambulatory Orders Atorvastatin Ca [Lipitor] 20 mg PO HS 03/14/17 Amlodipine Besylate/Valsartan [Amlodipine-Valsartan 5-160 mg] 1 each PO HS 0 04/08/20 Aspirin [Ecotrin] 81 mg PO DAILY 04/08/20 Metformin HCl [Glucophage] 1,000 mg PO DAILY 04/08/20 Physical Exam Vital Signs: Vital Signs Temperature 97.8 F 04/12/20 09:00 Pulse Rate 66 04/12/20 09:00 Respiratory Rate 18 04/12/20 09:00 Blood Pressure 107/62 04/12/20 09:00 O2 Sat by Pulse Oximetry (%) 98 04/11/20 22:00 Labs: CBC, BMP 04/12/20 08:40 Assessment/Plan Sore throat may be due to ETT insertion for anesthesia Advised present care,can be discharged home when ready Follow up in the office in 2 weeks
[2020-04-12] MEDS: ENOXAPARIN NA (PORCINE) 40 MG/0.4 ML DISP.SYRIN SQ SCH (09:43)
[2020-04-12] MEDS: ASPIRIN COATED 81 MG TABLET.EC PO SCH (09:44)
[2020-04-12] MEDS: ACETAMINOPHEN 325 MG TABLET (FP) PO PRN (09:51)
--- NOTE | 2020-04-12 11:38 | PN ---
Progress Note (short form) - Note Progress Note: 65yo F s/p Robotic hysterectomy POD 1. Pt seen and examined at bedside. Pt complaining of moderate abd pain. Pt just had snider taken out so has not urinated yet. Pt denies fever, chills, n/v, excessive vaginal bleeding. Last Vital Signs Temp Pulse Resp BP Pulse Ox 97.8 F 66 18 107/62 98 04/12/20 09:00 04/12/20 09:00 04/12/20 09:00 04/12/20 09:00 04/12/20 09:00 CBC, BMP 04/12/20 08:40 04/12/20 08:40 PE: Gen: A&O X3 Resp: breathing comfortably Abd: mild diffuse tenderness, dressings clean no erythema Legs no edema Problem List - Problems (1) S/P hysterectomy Assessment/Plan: Plan -pt appears to be well, will see if she tolerates diet, urinates, and ambulates. If pt is doing well, will consider discharge late afternoon, otherwise may leave tomorrow morning. -oob/ambulate -regular diet -pain control -dvt ppx Pt discussed with Dr. Hudson who agrees with plan Code(s): Z90.710 - ACQUIRED ABSENCE OF BOTH CERVIX AND UTERUS
[2020-04-12] MEDS ORDERED: KETOROLAC TROMETHAMINE 30 MG/1 ML VIAL IVPUSH ONE (15:33)
--- NOTE | 2020-04-12 15:53 | PN ---
Progress Note (short form) - Note Progress Note: 65F s/p Robot assisted hysterectomy under GETA/TAP block. Pt. doing well this afternoon. VSS. Oxy/vent well. Pt. out of bed with assistance this afternoon. No apparent anesthesia related complications.
[2020-04-12] MEDS ORDERED: BISACODYL 10 MG SUPP.RECT PR PRN (21:56)
[2020-04-12] MEDS ORDERED: ZOLPIDEM TARTRATE 5 MG TABLET PO ONE ×2 (21:56→22:00)
[2020-04-12] MEDS: ATORVASTATIN CA 20 MG TABLET (FP) PO SCH (22:23)
[2020-04-12] MEDS: VALSARTAN 160 MG TABLET (UD) PO SCH (22:26)
[2020-04-12] MEDS: amLODIPine BESYLATE 5 MG TABLET (FP) PO SCH (22:26)
[2020-04-13] MEDS: metFORMIN HCL 500 MG TABLET (FP) PO SCH (06:18)
[2020-04-13] MEDS: ACETAMINOPHEN 325 MG TABLET (FP) PO PRN (10:04)
[2020-04-13] MEDS: ENOXAPARIN NA (PORCINE) 40 MG/0.4 ML DISP.SYRIN SQ SCH (10:05)
[2020-04-13] MEDS: BENZOCAINE/MENTH/CETYLPYRD CL 1 EACH LOZENGE MM PRN (10:07)
[2020-04-13] MEDS: ASPIRIN COATED 81 MG TABLET.EC PO SCH (10:50)
[2020-04-13 11:50] VITALS: BP 117/70; PULSE 100; TEMP 98.4
--- NOTE | 2020-04-13 12:51 | PN ---
Progress Note (short form) - Note Progress Note: 65yo F s/p Robotic hysterectomy POD 2. Pt seen and examined at bedside on AM rounds with no complaints. She states her pain is controlled and she has been OOB ambulating and moved her bowels this morning. Pt denies fever, chills, CP, SOB, n/v, excessive vaginal bleeding. Vital Signs Temp 98.4 F 04/13/20 09:00 Pulse 100 H 04/13/20 09:00 Resp 20 04/13/20 09:00 BP 117/70 04/13/20 09:00 Pulse Ox 98 04/12/20 09:00 Intake & Output 04/12/20 04/13/20 04/13/20 23:59 11:59 23:59 Output Total 800 Balance -800 Output: Urine 800 Void 800 Other: Voiding Method Toilet Toilet CBC, BMP 04/12/20 08:40 04/12/20 08:40 PE: Gen: A&O X3 Resp: breathing comfortably Abd: Obese, ND with mild diffuse tenderness throughout, dressings clean no erythema or active d/c. Legs no edema, compartments soft, supple and NT with +2 DP pulses. Problem List - Problems (1) History of robot-assisted laparoscopic hysterectomy Assessment/Plan: Patient doing well. Plan -oob/ambulate -regular diet -pain control -dvt ppx -d/c home today Pt discussed with Dr. Hudson who agrees with plan Code(s): Z90.710 - ACQUIRED ABSENCE OF BOTH CERVIX AND UTERUS
--- NOTE | 2020-04-18 17:03 | PATH ---
Surgical Pathology Report Patient Name: DILAN RIVAS [facility]. Rec. #: [id number] /Age/Gender: 1955 (Age: 65) / F Account: [id number] Location: [facility] OBS/SPA ASSOCIATE Taken: 04/11/2020 Received: 04/11/2020 Reported: 04/18/2020 Physicians: Esperanza Hudson M.D. Specimen(s) Received A: UTERUS AND CERVIX B: LEFT FALLOPIAN TUBE C: RIGHT FALLOPIAN TUBE Clinical History Endometrial hyperplasia Final Diagnosis A. UTERUS AND CERVIX, HYSTERECTOMY: LEIOMYOMATA. ENDOMETRIAL POLYP. FOCAL ADENOMYOSIS. SIMPLE ENDOMETRIAL HYPERPLASIA WITHOUT ATYPIA. 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 B. LEFT FALLOPIAN TUBE, SALPINGECTOMY: PORTION OF FALLOPIAN TUBE WITH PARATUBAL CYST. C. RIGHT FALLOPIAN TUBE, SALPINGECTOMY: PORTION OF FALLOPIAN TUBE WITH PARATUBAL CYSTS. Comment: Operative report has been reviewed. This case was discussed with Dr. Hudson on 04/18/2020. Electronically Signed Jamila Sánchez M.D. Gross Description A. Received in formalin labeled "uterus and cervix," is a 99 g uterus with an attached cervix and no attached adnexa. The specimen measures 9.8 cm from superior to inferior, 5 cm from left to right and 3.4 cm from anterior to posterior. The serosa is childs-guerrero with focal defects. The attached cervix measures 3.5 cm in length and averages 2.7 cm in diameter. The ectocervix is chilsd, smooth and glistening. The endocervix is unremarkable. The endometrial cavity measures 4.5 cm in length and 2.3 cm from cornu to cornu. There is a 3.2 x 0.7 x 0.2 cm childs-red polyp attached to the lower anterior endometrium. The remaining endometrium is childs-red and focally measures up to 0.3 cm in thickness. There are multiple intramural nodules present, measuring up to 1.7 cm in greatest dimension. The remaining myometrium is childs guerrero and averages 1.7 cm in thickness. Boat Rigger sections are submitted in 18 cassettes as follows: 1-anterior cervix; 2-posterior cervix; [id number] and sequentially submitted anterior endometrium from superior to inferior with the polyp in cassette 9; [id number] and sequentially submitted posterior endometrium from superior to inferior; 18-intramural nodules. B. Received in formalin labeled "left fallopian tube," is a 5.5 cm in length fimbriated fallopian tube. The outer surface is childs-castro and smooth. Sectioning reveals an unremarkable lumen. Boat Rigger sections are submitted in 2 cassettes as follows: 1-fimbria; 2-cross section of fallopian tube. C. Received in formalin labeled "right fallopian tube," is a 3.2 cm in length fimbriated fallopian tube. The outer surface is childs-castro with abundant (> 20) small paratubal cysts averaging 0.3 cm in greatest dimension. Sectioning of the fallopian tube reveals an unremarkable lumen. Boat Rigger sections are submitted in 2 cassettes as follows: 1-fimbria; 2-cross sections of fallopian tube. 04/12/2020 [facility]04/12/2020
== END 2020-04-13 14:40 | disposition home or self-care (01) | DRG 743 ==
LOC: JASUSAT 06:02 → J3W 12:50 → JASUSAT 12:50 → J3W 12:51
PROVIDERS: ADMIT Obstetrics & Gynecology; ATTEND Obstetrics & Gynecology
PROC: 0DNW4ZZ Release Peritoneum, Percutaneous Endoscopic Approach (ICD-10-PCS; 2020-04-11)
PROC: 0UT7FZZ Resection of Bilateral Fallopian Tubes, Via Natural or Artificial Opening With Percutaneous Endoscopic Assistance (ICD-10-PCS; 2020-04-11)
PROC: 0UT9FZZ Resection of Uterus, Via Natural or Artificial Opening With Percutaneous Endoscopic Assistance (ICD-10-PCS; principal; 2020-04-11 08:00)
DX: D25.9 Leiomyoma of uterus, unspecified (principal); N81.89 Other female genital prolapse; N73.6 Female pelvic peritoneal adhesions (postinfective); I10 Essential (primary) hypertension; E78.5 Hyperlipidemia, unspecified; E11.9 Type 2 diabetes mellitus without complications; E66.9 Obesity, unspecified; Z68.38 Body mass index [BMI] 38.0-38.9, adult; N84.0 Polyp of corpus uteri; N80.0 Endometriosis of uterus; N72 Inflammatory disease of cervix uteri; N83.8 Other noninflammatory disorders of ovary, fallopian tube and broad ligament
CPT/HCPCS: 36415; 80048; 82962; 85027; 86850; 86900; 86901; 88302-TC; 88307-TC; 94010; 94760

== ENCOUNTER 2024-10-31 17:48 | Emergency (ER) | payer OTHER ==
[2024-10-31 18:07] VITALS: BP 132/59; PULSE 82; RESP 16; TEMP 98.3; BMI 36.6
[2024-10-31] MEDS: ACETAMINOPHEN 500 MG TABLET (FP) PO ONE (18:10)
[2024-10-31] MEDS ORDERED: ACETAMINOPHEN 500 MG TABLET (FP) ONE (18:11)
== END 2024-10-31 20:05 | disposition home or self-care (01) ==
LOC: FER 17:48
DX: M25.562 Pain in left knee (principal)
CPT/HCPCS: 93971-TC; 99283-25